=== PATIENT | male | born 1945 | race Caucasian/White ===

== ENCOUNTER → 2021-11-06 07:15 | Outpatient (CLI) | payer MEDICARE, OTHER, SELFPAY ==
[2021-11-06 10:17] LABS: Prostate Specific Antigen 3.44 ng/mL (0.10-4.00)
== END ==
PROVIDERS: PCP Family Medicine; Referring Provider Specialist; Visit Provider Specialist
DX: R97.20 Elevated prostate specific antigen [PSA] (principal)
CPT/HCPCS: 36415; 84153

== ENCOUNTER → 2023-08-24 15:06 | Outpatient (CLI) | payer MEDICARE, OTHER, SELFPAY ==
[2023-08-24 16:39] LABS: Prostate Specific Antigen 2.81 ng/mL (0.10-4.00)
== END ==
PROVIDERS: PCP Family Medicine; Referring Provider Specialist; Visit Provider Specialist
DX: R97.20 Elevated prostate specific antigen [PSA] (principal); N40.1 Benign prostatic hyperplasia with lower urinary tract symptoms; N13.8 Other obstructive and reflux uropathy; Z87.898 Personal history of other specified conditions
CPT/HCPCS: 36415; 51798; 81002; 84153; 99214